=== PATIENT | male | born 1950 | race Caucasian/White ===

== ENCOUNTER → 2020-03-21 | Outpatient (CLI) | payer OTHER ==
[~2020-03-21] MED LIST: CHLORTHALIDONE25 MG PO; LEXAPRO20 MG PO; LISINOPRIL40 MG PO; LOPRESSOR25 PO; NORVASC2.5 MG PO; XARELTO10 MG PO
== END ==
LOC: LAB 08:00
PROVIDERS: ATTEND Internal Medicine Cardiovascular Disease
DX: Z01.812 Encounter for preprocedural laboratory examination (principal); Z11.59 Encounter for screening for other viral diseases

== ENCOUNTER 2020-03-26 09:25 | Observation (INO) | payer OTHER ==
[~2020-03-26] VITALS: Ht 170.2 cm; Wt 99.3 kg
--- NOTE | ~2020-03-26 | P ---
[facility] [place] [address] PROCEDURE REPORT Name: GONZALO YOUSSEF Room #: REG Radha Edward.#: [id number] Admission: 03/26/20 Attend Phys: Singh Hurtado MD Discharge: Date of : 54 Report #: [id number] THIS REPORT FOR: cc: Deborah Schmidt MD, Cabot L. MD Couchonnal, Luis F. MD ~ CC: Deborah Hurtado DATE OF SERVICE: 03/26/2020 ATRIAL FLUTTER ABLATION PREOPERATIVE DIAGNOSIS: Atrial flutter. POSTOPERATIVE DIAGNOSIS: Cavotricuspid isthmus dependent flutter. PROCEDURES PERFORMED: 1. SVT ablation, CPT code 07075. 2. EP with left atrial pacing and recording, CPT code 07454. 3. Intracardiac echo, CPT code 23887. 4. 3D mapping, CPT code 02557. HISTORY OF PRESENT ILLNESS: The patient is a 69-year-old with recurrent atrial flutter, status post multiple cardioversions here for ablation. ANESTHESIA: The patient underwent MAC anesthesia with no anesthesia related complications. DESCRIPTION OF PROCEDURE: The patient underwent informed consent. We discussed the details of the procedure including the risks, which include but not limited to bleeding, vascular damage, stroke, MA as well as damage to the [place] conduction system requiring permanent pacemaker. He understood these risks and is willing to proceed. The patient was brought to EP laboratory in fasting and sedated state, prepped and draped in a sterile fashion. I injected lidocaine at the right groin, obtained access to the right femoral vein x 3, placing 8, 9 and 7-Mauritian short sheath using the modified Seldinger technique. Next, under fluoroscopy, Decapolar catheter was placed easily in the coronary sinus and ICE catheter was placed in the right atrium. At baseline, the patient had evidence of atrial flutter with an atrial cycle length of 280 milliseconds the proximal to distal activation along the CS. QRS duration was 71 milliseconds, QT interval was 300 milliseconds. Next, using intracardiac ultrasound, I created a detailed 3D geometry of the left atrium and the right atrium. The patient did have a prominent pouch along the mid isthmus. His left atrium demonstrated that he [address] [address] PROCEDURE REPORT Name: GONZALO YOUSSEF Room #: REG [facility]#: [id number] Admission: 03/26/20 Attend Phys: Singh Hurtado MD Discharge: Date of : 54 Report #: [id number] appeared to have a left common ostium and a right superior and right inferior pulmonary vein with a nice thin interatrial septum. 3D MAPPING AND ABLATION: Next, I opened up an 8-mm [employer] De La Garza ablation catheter and placed in the right atrium. I created a detailed 3D geometry of the right atrium and an activation map of the atrial flutter, which was consistent with cavotricuspid isthmus dependent flutter in a counter clockwise direction. Next, I opened up a ramp sheath and placed the ablation catheter in via the ramp sheath. I then started performing ablation at 70 salazar and 60 degrees. A continuous drag lesion was created in the mid isthmus, there was a very deep pouch, but I was able to ablate here with good hathaway. As I came to the posterior aspect of the initial ablation line, there was termination of the atrial flutter. Pacing was performed both medial and lateral to the line of ablation and there was evidence of bidirectional block with transisthmus conduction time of 185 milliseconds. I performed additional ablation within this deep pouch and widened the lesion set within this area due to my concern that this could potentially be a site for reconnection in the future. POST-ABLATION EP STUDY: Post-ablation EP study was performed. AV block was noted at 310 milliseconds. Atrial ERP was noted at 250 milliseconds at a [address] cycle length. Post-ablation, the patient was in sinus rhythm with sinus cycle length of 770 milliseconds, LA interval 180 milliseconds, QRS duration 80 milliseconds, QT interval 410 milliseconds. Using intracardiac ultrasound, I verified there is no evidence of pericardial effusion. As such, the procedure was concluded, catheters and sheaths were pulled and hemostasis was obtained and the patient awoke neurologically and hemodynamically intact. No complications and no significant bleeding. CONCLUSIONS: 1. Successful atrial flutter ablation with evidence of bidirectional block. 2. Normal SA keegan function. 3. Normal AV keegan function. 4. Normal His-Purkinje function. 5. No other inducible arrhythmias post-ablation. By: 1422 03 Singh Hurtado MD /nt
[~2020-03-26 09:25] MED LIST changes: +HYTRIN 1 MG CAP1 MG PO; +NORVASC 2.5 MG2.5 M1 PO; -NORVASC2.5 MG PO; +PERCOCET 10-321 EAC1 PO; +WELLBUTRIN SR150 M1 PO
[2020-03-26 10:26] VITALS: BP 135/89
[2020-03-26 10:26] LABS: ABSOLUTE NEUTROPHILS 5.7 thou/uL (1.4-8.2); BASOPHILS 0.4 % (0.0-2.0); EOSINOPHILS 2.7 % (0.0-3.0); HEMATOCRIT 39.3 % (42.0-52.0); HEMOGLOBIN 13.3 gm/dL (14.0-18.0); LYMPHOCYTES 16.7 % (24.0-44.0); MCH 32.3 pg (26.0-34.0); MCHC 33.9 g/dL (28.0-37.0); MCV 95.1 fL (80.0-100.0); MONOCYTES 7.1 % (1.0-8.0); PLATELET COUNT 164 thou/uL (150-400); POLYS 73.1 % (36.0-66.0); RBC 4.13 mil/uL (4.50-6.00); RDW 13.9 % (10.5-14.5); WBC 7.8 thou/uL (4.0-11.0)
[2020-03-26 10:45] LABS: ALBUMIN 3.9 g/dL (3.4-5.0); APTT 40.7 Seconds (24.5-32.8); CALCIUM 9.2 mg/dL (8.5-10.1); CREATININE 1.3 mg/dL (0.7-1.3); INR 1.1; POTASSIUM 4.3 mmol/L (3.5-5.1); PROTIME 11.5 Seconds (9.3-11.4); TOTAL BILIRUBIN 1.3 mg/dL (0.2-1.0); TOTAL PROTEIN 7.1 g/dL (6.4-8.2)
--- NOTE | 2020-03-26 15:58 | EKG ---
[facility] [place] [address] ELECTROCARDIOGRAM REPORT Name: GONZALO YOUSSEF Room #: REG [facility] M..#: [id number] Admission: 03/26/20 Attend Phys: Singh Hurtado MD Discharge: Date of : 54 Report #: [id number] THIS REPORT FOR: cc: Deborah Schmidt MD, Cabot L. MD Couchonnal, Luis F. MD ~ THIS REPORT FOR: //name// [facility] Test Date: 2020-03-26 Test Time: 15:48:06 Pat Name: GONZALO YOUSSEF Department: Room: Gender: Front Desk Clerk: Leilani WOODS : 1950 Requested By: Hailey Sanon Order Number: [id number] MD: Singh Hurtado Measurements Intervals [place] Rate: 97 P: 67 [place]: 198 QRS: 36 QRSD: 92 T: 83 QT: 400 QTc: 508 Interpretive Statements Sinus rhythm Probable left atrial enlargement Borderline T wave abnormalities No ischemia No previous ECG available for comparison Electronically Signed On 03-26-2020 15:58:31 CDT by Singh Hurtado [email or web address] <ELECTRONICALLY SIGNED> By: Singh Hurtado MD 03/26/20 1558 1548 1548 Singh Hurtado MD /EPI
[2020-03-26 19:10] VITALS: BP 144/93
[2020-03-27 05:47] VITALS: BP 158/99
--- NOTE | 2020-03-27 07:35 | NUR ---
RECEIVED REPORT FROM EDUARDO PASTE UP WORKER RN.PATIENT ARRIVED TO ROOM 215 AT SHIFT CHANGE.PATIENT IS OFF BEDREST AND WALK WITHOUT ANY PROBLEM.SOARES WAS DISCONTINUED AND PATIENT VOIDED.AMBIEN GIVEN.PATIENT SLEPT.MONITOR SHOWS SINUS ARRHYTHMIA,SINUS TACHY.RIGHT GROIN SITE C/D/I.POC CONTINUED.
[2020-03-27 08:05] VITALS: BP 162/94
--- NOTE | 2020-03-27 08:38 | EKG ---
[facility] [place] [address] ELECTROCARDIOGRAM REPORT Name: GONZALO YOUSSEF Room #: 215-P [facility] M.R.#: [id number] Admission: 03/26/20 Attend Phys: Singh Hurtado MD Discharge: Date of : 54 Report #: [id number] THIS REPORT FOR: cc: Deborah Schmidt MD, Cabot L. MD Lundgren, Craig H. MD [facility] ~ THIS REPORT FOR: //name// [facility] Test Date: 2020-03-27 Test Time: 07:53:57 Pat Name: GONZALO YOUSSEF Department: Room: 215 P Gender: M Biodiesel Production Associate: SUZIE : 1950 Requested By: Michelle Andres Order Number: [id number] MD: Prosper Vidal Measurements Intervals [place] Rate: 110 P: 72 [place]: 183 QRS: 39 QRSD: 99 T: 45 QT: 356 QTc: 482 Interpretive Statements Sinus tachycardia Atrial premature complexes Probable left ventricular hypertrophy Borderline prolonged QT interval Compared to ECG 03/26/2020 15:48:06 Atrial premature complex(es) now present Electronically Signed On 03-27-2020 8:37:50 CDT by Prosper Vidal [email or web address] <ELECTRONICALLY SIGNED> By: Prosper Vidal MD, FAC 03/27/20 0837 0753 0753 Prosper Vidal MD, [facility] /EPI
[2020-03-27] MEDS ORDERED: METOPROLOL SUCC50 MG PO (08:45)
--- NOTE | 2020-03-27 08:57 | 2DMMODE ---
[facility] [place] [address] 2 D/M-MODE ECHOCARDIOGRAM Name: GONZALO YOUSSEF Room #: 215-P [facility] M..#: [id number] Admission: 03/26/20 Attend Phys: Singh Hurtado MD Discharge: Date of : 54 Report #: [id number] THIS REPORT FOR: cc: Deborah Schmidt MD, Cabot L. MD Lammoglia, Francisco J. MD ~ APPROVED REPORT Study performed: 03/27/2020 08:09:59 EXAM: Limited 2D, Doppler, and color-flow Echocardiogram Patient Location: Bedside Room #: 215 Status: routine BSA: 2.10 HR: 115 bpm BP: 158/99 mmHg Rhythm: Tachycardia Other Information Study Quality: Adequate Indications Abbreviated [facility] for chest pain status post ablation. Aortic Valve AoV Peak Romie.: 1.86 m/s AO Peak Gr.: 13.87 mmHg AO Mean Gr.: 9.22 mmHg AO V2 Mean: 1.47 m/s AO V2 VTI: 39.38 cm Tricuspid Valve TR Peak Romie.: 3.02 m/s RAP Estimate: 10.00 mmHg TR Peak Gr.: 36.37 mmHg PA Pressure: 46.00 mmHg Left Ventricle Left ventricular systolic function is mild to moderately decreased. LVEF is 40-45%. This study is not technically sufficient to allow evaluation of the LV diastolic function. Right Ventricle The right ventricular systolic function is normal. [facility] [address] [place] [address] 2 D/M-MODE ECHOCARDIOGRAM Name: GONZALO YOUSSEF Room #: 215-P [facility]..#: [id number] Admission: 03/26/20 Attend Phys: Singh Hurtado Discharge: Date of : 54 Report #: [id number] Atria Left atrium is dilated. Right atrium is dilated. Aortic Valve Aortic valve is calcified. Trace aortic regurgitation. Mitral Valve The mitral valve is normal in structure. Mild to moderate mitral regurgitation. Tricuspid Valve The tricuspid valve is normal in structure. Mild tricuspid regurgitation. Estimated PAP i [id number]. Great Vessels IVC is dilated and collapses >50% with inspiration. Pericardium There is no pericardial effusion. <Conclusion> LVEF is 40-45%. Left atrium is dilated. Right atrium is dilated. Aortic valve is calcified. Trace aortic regurgitation. The mitral valve is normal in structure. Mild to moderate mitral regurgitation. The tricuspid valve is normal in structure. Mild tricuspid regurgitation. Estimated PAP i [id number]. There is no pericardial effusion. <ELECTRONICALLY SIGNED> By: Troy Calle MD 03/27/20 0856 0856 0856 Troy Calle MD /INF
[2020-03-27 09:08] VITALS: BP 162/94
--- NOTE | 2020-03-27 09:15 | NUR ---
ASSUMED CARE AT SHIFT CHANGE, ALERT AND ORIENTED. BP 164/82 MORNING MEDS GIVEN, ST-SR ON THE MONITOR, AND OTHER VSS. DISCHARGE AND MEDICATION INSTRUCTIONS GIVEN TO PATIENT.
== END 2020-03-27 10:03 | disposition home or self-care (01) ==
LOC: CATH 09:25 → 2N 16:14 → CATH 20:09 → 2N 03-27 10:03
PROVIDERS: ADMIT Internal Medicine Cardiovascular Disease; ATTEND Internal Medicine Cardiovascular Disease
DX: I48.92 Unspecified atrial flutter (principal); I10 Essential (primary) hypertension; E78.5 Hyperlipidemia, unspecified; G47.33 Obstructive sleep apnea (adult) (pediatric); G89.29 Other chronic pain; I25.10 Atherosclerotic heart disease of native coronary artery without angina pectoris; E66.9 Obesity, unspecified; Z68.34 Body mass index [BMI] 34.0-34.9, adult; Z79.1 Long term (current) use of non-steroidal anti-inflammatories (NSAID); Z79.899 Other long term (current) drug therapy
CPT/HCPCS: 10081; 62110; 62900; 70005

== ENCOUNTER 2020-05-16 22:55 | Emergency (ER) | payer OTHER ==
[~2020-05-16] VITALS: Ht 170.2 cm; Wt 99.8 kg
[~2020-05-16 22:55] MED LIST changes: +METOPROLOL SUCC50 MG PO
[2020-05-16 23:37] LABS: ABSOLUTE NEUTROPHILS 7.1 thou/uL (1.4-8.2); BASOPHILS 0.4 % (0.0-2.0); EOSINOPHILS 0.9 % (0.0-3.0); HEMATOCRIT 44.4 % (42.0-52.0); HEMOGLOBIN 15.1 gm/dL (14.0-18.0); LYMPHOCYTES 21.9 % (24.0-44.0); MCH 31.6 pg (26.0-34.0); MCV 93.1 fL (80.0-100.0); MONOCYTES 7.5 % (1.0-8.0); PLATELET COUNT 289 thou/uL (150-400); POLYS 69.3 % (36.0-66.0); RBC 4.77 mil/uL (4.50-6.00); RDW 14.3 % (10.5-14.5); WBC 10.2 thou/uL (4.0-11.0)
[2020-05-16 23:43] LABS: CALCIUM 9.4 mg/dL (8.5-10.1); CREATININE 1.6 mg/dL (0.7-1.3); POTASSIUM 3.5 mmol/L (3.5-5.1)
[2020-05-16 23:50] LABS: ALBUMIN 4.1 g/dL (3.4-5.0); TOTAL BILIRUBIN 1.1 mg/dL (0.2-1.0); TOTAL PROTEIN 7.8 g/dL (6.4-8.2)
[2020-05-16] MEDS ORDERED: MECLIZINE HCL25 M1 PO (23:59)
[2020-05-17] MEDS ORDERED: LIDODERM1 EACH TOP (01:33)
[2020-05-17] MEDS ORDERED: PERCOCET 5-3251 EACH PO (01:33)
[2020-05-17 01:39] VITALS: BP 122/69
--- NOTE | 2020-05-17 07:12 | EKG ---
[facility] [place] [address] ELECTROCARDIOGRAM REPORT Name: GONZALO YOUSSEF Room #: DEP [facility]..#: [id number] Admission: 05/16/20 Attend Phys: Discharge: 05/17/20 Date of : 54 Report #: [id number] THIS REPORT FOR: cc: Deborah Schmidt MD, Cabot L. MD Santiago, Patrick MD [facility] ~ THIS REPORT FOR: //name// [facility] ED Test Date: 2020-05-16 Test Time: 23:12:32 Pat Name: GONZALO YOUSSEF Department: Room: Gender: Fire Prevention Research Engineer: connietnluz : 1950 Requested By: Yunior Gaytan Order Number: [id number] MD: Adam Araujo Measurements Intervals [place] Rate: 119 P: 41 [place]: 173 QRS: 32 QRSD: 83 T: 58 QT: 340 QTc: 479 Interpretive Statements Sinus tachycardia Multiple premature complexes, vent & supraven Borderline repolarization abnormality Borderline prolonged QT interval Compared to ECG 03/27/2020 07:53:57 Atrial premature complex(es) no longer present Electronically Signed On 05-17-2020 7:12:02 CDT by Adam Araujo [email or web address] <ELECTRONICALLY SIGNED> By: Adam Araujo MD, FACC 05/17/20 0712 11 11 Adam Araujo MD, FAC /EPI
== END 2020-05-17 01:41 | disposition home or self-care (01) ==
LOC: ER 22:55
PROVIDERS: Emergency Medicine
DX: M54.5 Low back pain (principal); M54.6 Pain in thoracic spine; R06.02 Shortness of breath; R07.89 Other chest pain; I48.91 Unspecified atrial fibrillation; I10 Essential (primary) hypertension; E78.5 Hyperlipidemia, unspecified; I25.10 Atherosclerotic heart disease of native coronary artery without angina pectoris; K21.9 Gastro-esophageal reflux disease without esophagitis; Z96.651 Presence of right artificial knee joint; Z98.890 Other specified postprocedural states; Z79.899 Other long term (current) drug therapy; W17.89XA Other fall from one level to another, initial encounter; Y93.89 Activity, other specified; Y92.098 Other place in other non-institutional residence as the place of occurrence of the external cause; Y99.8 Other external cause status

== ENCOUNTER → 2020-07-23 | Outpatient (CLI) | payer OTHER ==
[~2020-07-23] MED LIST changes: +LIDODERM1 EACH TOP; +MECLIZINE HCL25 M1 PO; +PERCOCET 5-3251 EACH PO
== END ==
LOC: LAB
PROVIDERS: ATTEND Internal Medicine Cardiovascular Disease
DX: Z01.812 Encounter for preprocedural laboratory examination (principal); Z20.828 Contact with and (suspected) exposure to other viral communicable diseases

== ENCOUNTER → 2020-07-24 | Outpatient (CLI) | payer OTHER ==
--- NOTE | 2020-07-24 07:26 | EKG ---
[facility] [place] [address] ELECTROCARDIOGRAM REPORT Name: GONZALO YOUSSEF Room #: REG [facility].#: [id number] Admission: 07/24/20 Attend Phys: Singh Hurtado MD Discharge: Date of : 54 Report #: [id number] THIS REPORT FOR: cc: Deborah Schmidt MD, Cabot L. MD Santiago, Patrick MD [facility] ~ THIS REPORT FOR: //name// [facility] Test Date: 2020-07-24 Test Time: 07:19:11 Pat Name: GONZALO YOUSSEF Department: Room: Gender: M Md Urologist: SUZIE : 1950 Requested By: Singh Hurtado Order Number: [id number] MD: Adam Araujo Measurements Intervals [place] Rate: 81 P: 58 [place]: 174 QRS: 48 QRSD: 87 T: 49 QT: 419 QTc: 487 Interpretive Statements Sinus rhythm Atrial premature complexes Left atrial enlargement Minimal ST elevation, anterior leads Borderline prolonged QT interval Compared to ECG 05/16/2020 23:12:32 Atrial premature complex(es) now present Atrial abnormality now present ST (T wave) deviation now present Sinus tachycardia no longer present Electronically Signed On 07-24-2020 7:26:23 BOTTOM FILLER by Adam Araujo [email or web address] <ELECTRONICALLY SIGNED> By: Adam Araujo MD, [facility] 07/24/20725 8 8 Adam Araujo MD, [facility] /EPI
== END | disposition home or self-care (01) ==
LOC: CATH 06:36
PROVIDERS: ATTEND Internal Medicine Cardiovascular Disease
DX: I48.91 Unspecified atrial fibrillation (principal); Z53.8 Procedure and treatment not carried out for other reasons; I48.92 Unspecified atrial flutter; Z79.01 Long term (current) use of anticoagulants; Z98.890 Other specified postprocedural states; Z79.899 Other long term (current) drug therapy

== ENCOUNTER → 2020-08-29 | Outpatient (CLI) | payer OTHER | LOC: SJCVC 12:56 | PROVIDERS: ATTEND Internal Medicine | DX: I48.0 Paroxysmal atrial fibrillation (principal); R94.31 Abnormal electrocardiogram [ECG] [EKG]; G89.29 Other chronic pain; I10 Essential (primary) hypertension; E78.5 Hyperlipidemia, unspecified; G47.33 Obstructive sleep apnea (adult) (pediatric); E66.9 Obesity, unspecified; Z79.899 Other long term (current) drug therapy ==

== ENCOUNTER → 2020-09-19 | Outpatient (CLI) | payer OTHER | LOC: LAB 09:46 | PROVIDERS: ATTEND Internal Medicine Cardiovascular Disease | DX: Z01.812 Encounter for preprocedural laboratory examination (principal); Z20.822 Contact with and (suspected) exposure to COVID-19 ==

== ENCOUNTER → 2020-09-19 | Outpatient (CLI) | payer OTHER ==
[2020-09-19 10:11] LABS: HEMATOCRIT 38.8 % (42.0-52.0); HEMOGLOBIN 12.9 gm/dL (14.0-18.0); MCH 31.7 pg (26.0-34.0); MCHC 33.4 g/dL (28.0-37.0); MCV 95.1 fL (80.0-100.0); RBC 4.08 mil/uL (4.50-6.00); RDW 13.4 % (10.5-14.5); WBC 5.7 thou/uL (4.0-11.0)
[2020-09-19 10:29] LABS: ALBUMIN 3.7 g/dL (3.4-5.0); CREATININE 1.2 mg/dL (0.7-1.3); POTASSIUM 4.2 mmol/L (3.5-5.1); TOTAL BILIRUBIN 0.6 mg/dL (0.2-1.0); TOTAL PROTEIN 6.5 g/dL (6.4-8.2)
== END ==
LOC: CAT 09:31
PROVIDERS: ATTEND Internal Medicine Cardiovascular Disease
DX: I48.91 Unspecified atrial fibrillation (principal); I25.10 Atherosclerotic heart disease of native coronary artery without angina pectoris; M47.814 Spondylosis without myelopathy or radiculopathy, thoracic region

== ENCOUNTER 2020-09-24 06:27 | Observation (INO) | payer OTHER ==
[2020-09-24] VITALS (10 sets, daily range): BP systolic 126–149; BP diastolic 62–76
[~2020-09-24] VITALS: Ht 167.6 cm; Wt 100.7 kg
--- NOTE | ~2020-09-24 | P ---
[facility] [place] [address] PROCEDURE REPORT Name: GONZALO YOUSSEF Room #: REG JAXSON Edward.#: [id number] Admission: 09/24/20 Attend Phys: Singh Hurtado MD Discharge: Date of : 54 Report #: [id number] THIS REPORT FOR: cc: Deborah Schmidt MD, Cabot L. MD Couchonnal, Luis F. MD ~ DATE OF SERVICE: 09/24/2020 PREOPERATIVE DIAGNOSIS: Atrial fibrillation. POSTOPERATIVE DIAGNOSIS: Atrial fibrillation. PROCEDURES PERFORMED: 1. Atrial fibrillation ablation, CPT code 40344. 2. 3D mapping, CPT code 69124. 3. Intracardiac echo, CPT code 80949. 4. Focal ablation, CPT code 73780. HISTORY: The patient is a 69-year-old with a history of atrial flutter, status post ablation, who has recently been diagnosed with AFib, here for an ablation. ANESTHESIA: The patient underwent general anesthesia with no anesthesia related complications. DESCRIPTION OF PROCEDURE: The patient underwent informed consent. We discussed the details of the procedure including the risks, which include but not limited to bleeding, vascular damage, stroke, MA, and cardiac perforation. He understood these risks and is willing to proceed. The patient was brought to EP laboratory in fasting and sedated state, prepped and draped in the sterile fashion. Next, I injected lidocaine to the right groin, obtained access to the right femoral vein x 3, placing 8, 9 and 7-Hebrew short sheath using the modified Seldinger technique. Next, under fluoroscopy, a Decapolar catheter was placed into the coronary sinus and later into the subclavian vein for phrenic nerve pacing. ICE catheter was placed in the right atrium and the patient had evidence of a left common ostium with a superior and inferior branch noted. The patient also had possibly a right-sided common ostium or a right superior pulmonary vein that was very close to the right inferior pulmonary vein. The patient was systemically heparinized. Transseptal was performed with SL1 sheath and a [place] needle, which was straightforward and I exchanged for the cryo sheath into the left atrium. Next, a Lasso catheter was placed in the left atrium. 3D geometry and voltage map were created of the left atrium. Next, I exchanged for the cryo ablation catheter and started isolating the left common [facility] [address] [place] [address] PROCEDURE REPORT Name: DOMONIQUEGONZALO MICHELLE Room #: REG JAXSON Osorio#: [id number] Admission: 09/24/20 Attend Phys: Singh Hurtado MD Discharge: Date of : 54 Report #: [id number] ostium. I performed 4 freezes anchored from the left inferior pulmonary vein and 2 freezes anchored from the left superior pulmonary vein, each freeze was of 4 minutes' duration. Attempts were around -30 to -34 degrees. After the completion of these freezes, the left common ostium was isolated. I then turned my attention to the right superior pulmonary vein and I performed an initial 60, followed by 90, followed by 4-minute freeze. Attempts were not very good in this vein despite good occlusion waveforms. It appeared that likely the right superior and right inferior pulmonary veins either are in close approximation or share common ostium. I therefore moved on to the right inferior pulmonary vein and I performed two 4-minute freezes with the vessel isolating during the first freeze. Isolation occurred in 30 seconds. I then re-interrogated the right superior branch and this appeared to be isolated as well. Next, I went back up with the Lasso catheter and performed a 3D voltage map and this showed that all pulmonary veins were now isolated. I therefore, went back up with the cryoablation balloon and performed a posterior roofline. I performed a total of 5 freezes anchored from the left common ostium and then a repeat voltage map was created, which showed that we now had posterior isolation of the roof region. While post-ablation, EP study was performed. AV block was noted at 380 milliseconds. AV keegan ERP was noted at 310 milliseconds at a [address] cycle length. Double atrial extrastimuli were delivered and atrial burst pacing was performed down to 250 milliseconds. I could not induce any AFib, atrial flutter, nor any SVT. As such, the procedure was concluded. The patient was in sinus rhythm with sinus cycle length of 975 milliseconds, ID interval 227 milliseconds, QRS duration 90 milliseconds and a QT interval 465 milliseconds. As such, the patient received systemic protamine and once ACT was within acceptable range, catheters and sheaths were pulled and hemostasis was obtained. Rlbrcq-wf-[id number] suture was performed in the groin, which was secured using a 3-way stopcock. CONCLUSIONS: 1. Successful atrial fibrillation ablation. 2. Successful posterior wall isolation. By: [id number] Singh Hurtado MD /nt
[2020-09-24 07:52] LABS: ABSOLUTE NEUTROPHILS 3.9 thou/uL (1.4-8.2); BASOPHILS 0.4 % (0.0-2.0); EOSINOPHILS 5.3 % (0.0-3.0); HEMATOCRIT 38.6 % (42.0-52.0); HEMOGLOBIN 12.9 gm/dL (14.0-18.0); LYMPHOCYTES 25.2 % (24.0-44.0); MCH 31.7 pg (26.0-34.0); MCHC 33.5 g/dL (28.0-37.0); MCV 94.8 fL (80.0-100.0); MONOCYTES 8.8 % (1.0-8.0); PLATELET COUNT 200 thou/uL (150-400); POLYS 60.3 % (36.0-66.0); RBC 4.07 mil/uL (4.50-6.00); RDW 13.7 % (10.5-14.5); WBC 6.5 thou/uL (4.0-11.0)
[2020-09-24 07:57] LABS: CALCIUM 9.3 mg/dL (8.5-10.1); CREATININE 1.3 mg/dL (0.7-1.3); POTASSIUM 3.7 mmol/L (3.5-5.1)
[2020-09-24 07:58] LABS: APTT 31.7 Seconds (24.5-32.8); INR 1.1; PROTIME 10.8 Seconds (9.3-11.4)
[2020-09-24] MEDS ORDERED: EFFER-K 20 MEQ20 ME1 PO (07:59)
[2020-09-24] MEDS ORDERED: FLECAINIDE ACE100 MG PO (08:00)
[2020-09-24 08:03] LABS: ALBUMIN 3.8 g/dL (3.4-5.0); TOTAL BILIRUBIN 0.7 mg/dL (0.2-1.0); TOTAL PROTEIN 6.9 g/dL (6.4-8.2)
[2020-09-24] MEDS ORDERED: NORVASC 2.5 MG2.5 M1 PO (08:04)
[2020-09-24] MEDS ORDERED: PROSCAR 5MG TABL5 M1 PO (08:07)
--- NOTE | 2020-09-24 13:56 | NUR ---
PRESSURE IS BEING MAINTAINED BY AL Cottrell RN. SUTURE REMOVED ENTIRELY. DR SWENSON AWARE.
--- NOTE | 2020-09-24 14:17 | NUR ---
ECTOR DRESSING APPLIED WITH GAUZE PRESSURE DRESSING ON TOP. WOUND IS STILL OOZING BLOOD, HOWEVER DRESSING IS CURRENTLY DRY. DR MESSI BERMUDEZ.
--- NOTE | 2020-09-24 18:48 | NUR ---
PT CARE ASSUMED AT 0700. ASSESSMENTS CHARTED. MEDICATIONS CHARTED. RAC 2L IV. SOARES. SINUS RHYTHM. RT GROIN VENOUS ACCESS. HEMOSTASIS 1430, BEDREST UNTIL 1830.
[2020-09-25 00:30] VITALS: BP 147/72
[2020-09-25 04:45] VITALS: BP 135/77
--- NOTE | 2020-09-25 05:05 | NUR ---
SLEPT MOST OF SHIFT. UP AD [place] TO BATHROOM WITH STEADY GAIT. RIGHT GROIN DSG REMAINS CLEAN, DRY AND INTACT. NO HEMOTOMA OR BLEEDING FROM SITE. VOIDING WITHOUT PROBLEMS PAST SOARES DISCONTINUED. WORKING ON GOALS AND PLAN OF CARE FOR NOC. PROGRESSING TOWARDS DISCHARGE GOALS. CONTINUE TO ASSES CLOSELY.
[2020-09-25 07:50] VITALS: BP 152/71
[2020-09-25 08:00] VITALS: BP 152/71
[2020-09-25 08:50] VITALS: BP 152/71
--- NOTE | 2020-09-25 11:20 | NUR ---
PT CARE ASSUMED AT 0700. ASSESSMENTS CHARTED. MEDICATIONS CHARTED. RAC IV. SINUS RHYTHM. URINAL/TOILET. RT GROIN VENOUS ACCESS, C/D/I. CPAP @ HOME, REFUSED IN HOSPITAL. UAL. PT DISCHARGED TO HOME. DISCHARGE PAPERWORK SIGNED. TELEMETRY D/C'D/ IV D/C'D.
== END 2020-09-25 10:59 | disposition home or self-care (01) ==
LOC: CATH 06:27 → 2N 15:12
PROVIDERS: ADMIT Internal Medicine Cardiovascular Disease; ATTEND Internal Medicine Cardiovascular Disease
DX: I48.91 Unspecified atrial fibrillation (principal); I48.92 Unspecified atrial flutter; I10 Essential (primary) hypertension; E78.5 Hyperlipidemia, unspecified; I25.10 Atherosclerotic heart disease of native coronary artery without angina pectoris; E66.9 Obesity, unspecified; G47.33 Obstructive sleep apnea (adult) (pediatric); G89.29 Other chronic pain; Z68.45 Body mass index [BMI] 70 or greater, adult; Z79.899 Other long term (current) drug therapy
CPT/HCPCS: 62110; 62900; 70005

== ENCOUNTER → 2020-12-25 | Outpatient (CLI) | payer OTHER ==
[~2020-12-25] MED LIST changes: +EFFER-K 20 MEQ20 ME1 PO; +FLECAINIDE ACE100 MG PO; +PROSCAR 5MG TABL5 M1 PO
== END ==
LOC: SJCVC 12:27
PROVIDERS: ATTEND Internal Medicine Cardiovascular Disease
DX: R94.31 Abnormal electrocardiogram [ECG] [EKG] (principal); I48.0 Paroxysmal atrial fibrillation; I48.3 Typical atrial flutter; G89.29 Other chronic pain; I10 Essential (primary) hypertension; E78.5 Hyperlipidemia, unspecified; G47.33 Obstructive sleep apnea (adult) (pediatric); E66.9 Obesity, unspecified; I25.10 Atherosclerotic heart disease of native coronary artery without angina pectoris; Z98.890 Other specified postprocedural states; Z79.899 Other long term (current) drug therapy

== ENCOUNTER → 2021-04-30 | Outpatient (CLI) | payer OTHER ==
[~2021-04-30] MED LIST changes: +CHLORTHALIDONE50 MG PO; +KLOR-CON M2020 MEQ PO; +NORVASC10 MG PO; +OXYCONTIN10 M1 PO; +PERCOCET 7.5-31 EAC1 PO; +TERAZOSIN HCL10 MG PO; +WELLBUTRIN SR150 MG PO; +XARELTO20 MG PO
== END ==
LOC: SJCVC 11:41
PROVIDERS: ATTEND Internal Medicine Cardiovascular Disease
DX: R94.31 Abnormal electrocardiogram [ECG] [EKG] (principal); I48.0 Paroxysmal atrial fibrillation; I48.92 Unspecified atrial flutter; I51.7 Cardiomegaly; N40.0 Benign prostatic hyperplasia without lower urinary tract symptoms; E66.9 Obesity, unspecified; G47.33 Obstructive sleep apnea (adult) (pediatric); F32.9 Major depressive disorder, single episode, unspecified; Z79.899 Other long term (current) drug therapy